=== PATIENT | female | born 1980 | race Caucasian/White ===

== ENCOUNTER 2024-04-02 13:38 | Inpatient (IN) | payer OTHER, SELFPAY ==
--- NOTE | ~2024-04-02 | XR_ITS ---
EXAMINATION: XR chest 2V DATE: 04/03/2024 13:19 INDICATION: Left face weakness. Stroke. TECHNIQUE: Frontal and lateral views of the chest were obtained. COMPARISON: None. FINDINGS: There is no pneumonia, pleural effusion, or pneumothorax. The heart size is normal. There a re bilateral breast implants. IMPRESSION: 1. No acute cardiopulmonary disease. Reviewed, dictated and finalized at location A. TUBE MAKER
--- NOTE | ~2024-04-02 | XR_ITS ---
EXAMINATION: XR cervical spine 4-5V DATE: 04/03/2024 13:19 INDICATION: Decreased sensation of left face, arm, and leg. Breast cancer. TECHNIQUE: 4 views of the cervical spine were obtained. COMPARISON: None. FINDINGS: There is hypolordosis of cervical spine. Vertebral body heights and intervertebral disc hei ghts are normal. At C7-T1, there is mild facet joint osteoarthritis. IMPRESSION: 1. Mild facet joint osteoarthritis at C7-T1. Reviewed, dictated and finalized at location A. Y GUN REPAIRER HELPER
--- NOTE | ~2024-04-02 | CT_ITS ---
CT brain wo con Ordering provider: Darcy Torre APRN History: 43 years Female with . Left sided weakness . Comparison: None. Technique: CT of the head without contrast. Radiation reduction technique utilized.The dose-length pr oduct was 605.33 mGy-cm. FINDINGS: BRAIN PARENCHYMA AND CSF SPACES: No midline shift, mass effect or hemorrhage. The brain parenchyma a nd CSF spaces are otherwise normal. Small hyperdensity seen in the area of the left matty is most like ly artifactual. VISUALIZED PARANASAL SINUSES: Well aerated. MASTOIDS: Well aerated. BONES: The bones appear intact. SOFT TISSUES: Visualized nasopharynx is normal. Superficial soft tissues are normal. IMPRESSION: No acute intracranial findings. Reviewed, dictated and finalized at location A. OELECTRIC OPERATOR
--- NOTE | ~2024-04-02 | MR_ITS ---
MRI of the brain Clinical History: CVA Technique: Axial and sagittal T1-weighted images were acquired. These were followed by axial T2-weigh gabriela, diffusion weighted, gradient, and FLAIR images. Following intravenous administration of 19 cc Mu ltiHance gadolinium, T1-weighted fat-sat imaging was performed in the axial and coronal planes. Findings: No abnormal signal seen in the brain parenchyma. No acute infarct, intracranial hemorrhage, or mass lesion. Ventricles and subarachnoid spaces are unremarkable. Orbits are unremarkable. Paranasal sinuses and m astoid air cells are clear. Major intracranial flow voids are intact. Sagittal midline structures are intact. No abnormal postcontrast enhancement identified. IMPRESSION: Unremarkable exam. Reviewed, dictated and finalized at location M. RY TEAM MEMBER IMPRESSION: Unremarkable exam.
--- NOTE | ~2024-04-02 | CT_ITS ---
EXAMINATION: CTA brain carotid DATE: 04/02/2024 16:32 INDICATION: Left foot drop. TECHNIQUE: Computed tomographic angiography (CTA) of the head was performed with 100 mL Omnipaque-350 intravenous contrast. CTA of the neck was performed with intravenous contrast. Automated exposure co ntrol and iterative reconstruction technique were employed. The dose-length product was 1146.30 mGy-c m. Maximum intensity projection and volume rendered 3D-reconstructions were created by the [employer] st on a separate workstation. COMPARISON: Head CT 04/02/2024 FINDINGS: HEAD CTA: There is no intracranial hemorrhage, acute infarction, or abnormal intracranial mass lesion . The ventricles are normal in size. There is mild mucosal thickening in the paranasal sinuses. The m astoid air cells are normal. The orbits are normal. The vertebral arteries are codominant. There is n o significant stenosis of basilar artery or the posterior cerebral arteries. There is no significant stenosis of the intracranial internal carotid arteries or anterior or middle cerebral arteries. Anter ior communicating artery is normal. There is no aneurysm. The posterior communicating arteries are no rmal. NECK CTA: There are nodules in the thyroid measuring up to 4 mm, likely not clinically significant. T here are no pathologically enlarged lymph nodes. There is no significant stenosis of the vertebral ar teries. There is no significant plaque in the proximal internal carotid arteries. There is 0% stenosi s of the proximal right internal carotid artery relative to normal distal artery lumen diameter (NASC ET criteria). There is 0% stenosis of the proximal left internal carotid artery relative to normal di stal artery lumen diameter. There is mild facet joint osteoarthritis in cervical spine. IMPRESSION: 1. Normal brain. No aneurysm or significant intracranial arterial stenosis. 2. 0% stenosis of the proximal internal carotid arteries relative to normal distal artery lumen diame ters (NASCET criteria). Reviewed, dictated and finalized at location A. LASS FRAMES INSPECTOR IMPRESSION: 1. Normal brain. No aneurysm or significant intracranial arterial stenosis. 2. 0% stenosis of the proximal internal carotid arteries relative to normal dis simone artery lumen diameters (NASCET criteria).
[2024-04-02 13:44] VITALS: BP 120/72; PULSE 75; RESP 16; TEMP 36.6; O2SAT 100
[2024-04-02 14:31] LABS: BEDSIDEPREGUCG Negative (Negative)
[2024-04-02 14:41] LABS: Basophils Percent Auto 0.7 % (0.2-1.2); Eosinophils Absolute Auto 0.2 K/mm3 (0-0.3); Eosinophils Percent Auto 2.8 % (0-4.4); Hematocrit 41.2 % (37.0-47.0); Hemoglobin 13.2 g/dL (12.0-15.0); Immature Granulocyte Absolute 0.01 K/mm3 (0.00-0.031); Immature Granulocyte Percent A 0.2 % (0-0.5); Lymphocytes Absolute Auto 1.52 K/mm3 (0.9-3.2); Mean Corpuscular Volume 87.3 fl (80-100); Mean Platelet Volume 11.1 fl (7.4-10.4); Monocytes Absolute Auto 0.4 K/mm3 (0.1-0.6); Monocytes Percent Auto 6.9 % (2.6-8.5); Neutrophils Absolute Auto 3.9 K/mm3 (1.3-6.7); Neutrophils Percent Auto 64.4 % (45.5-73.1); Platelet Count Result 232 k/mm3 (150-375); Red Blood Count 4.72 M/mm3 (4.2-5.4); Red Cell Distribution Width 13.4 % (11.5-14.5); White Blood Count 6.1 K/mm3 (4.5-10.0)
[2024-04-02 14:43] LABS: Add Urine Microscopic? NO; Appearance Urine Clear (Clear); Bilirubin Urine Negative (Negative); Blood Urine Negative (Negative); Color Urine Yellow (Yellow); Glucose Urine UA Negative (Negative); Ketones Urine Negative (Negative); Leukocyte Esterase Ur Negative LEU/UL (Negative); Nitrate Urine Negative (Negative); Protein Urine Negative (Negative); Specific Grav Ur 1.005 (1.001-1.035); Urobilinogen Urine 0.2 mg/dL (<2.0)
[2024-04-02 14:51] LABS: Alanine Aminotransferase 15 U/L (6-35); Albumin Level 4.4 g/dL (3.5-5.1); Alkaline Phosphatase 69 U/L (38-126); Anion Gap 3 mmol/L (4-12); Aspartate Amino Transferase 26 U/L (14-36); Bilirubin,Total 0.5 mg/dL (0.2-1.3); Blood Urea Nitrogen 17 mg/dL (7-17); Calcium 8.6 mg/dL (8.4-10.2); Carbon Dioxide 27 mmol/L (22-30); Chloride 108 mmol/L (98-107); Estimated CRCL calculation 105 ml/min; Estimated Glomerular Filt Rate > 60; Glucose 95 mg/dL (65-110); Potassium 4.6 mmol/L (3.4-5.0); Sodium 138 mmol/L (137-145)
[2024-04-02 15:04] LABS: INR 0.9; Prothrombin Time 12.8 Seconds (11.1-14.7)
[2024-04-02 15:05] LABS: Partial Thromboplastin Time 20.3 Seconds (22.3-36.8)
--- NOTE | 2024-04-02 16:17 | ED_ITS ---
HPI - General Adult General Chief complaint: Neuro Symptoms/Deficit Stated complaint: mata's palsy Time Seen by Provider: 04/02/24 14:48 History of Present Illness HPI narrative: this is a 43-year-old female sent from the urgent care for rule out stroke. Patient woke up this morning and drooping of her left eyelid. Last known normal yesterday before she went to bed. eventually patient was told by family member to go to urgent care for evaluation edema she was initially diagnosed with Mata's palsy there was some concern because the patient reported decreased sensation on the left side of her face/arm/leg. Patient denies double vision dysarthria dysphagia or loss of coordination. No motor deficits. Patient has a history of breast cancer that has been treated successfully. Related Data Allergies Allergy/AdvReac Type Severity Reaction Status Date / Time No Known Allergies Allergy Verified 04/02/24 14:30 Exam Narrative: APPEARANCE: No apparent distress. Head: atraumatic. EYES: Ptosis of the left eye, extraocular eye movements intact NOSE: Atraumatic NECK: Trachea midline RESPIRATORY: No increased rate of breathing CARDIOVASCULAR: RRR, ABDOMINAL: Non-distended MUSCULOSKELETAl: No obvious deformities NEURO: Alert. ptosis of the left eye, otherwise cranial nerves intact, motor says sensation intact for 4 extremities, decreased sensation left face arm and leg. No ataxia. forehead movement intact bilaterally SKIN:: Warm, dry. Normal color PSYCHIATRIC: Normal affect NIH Stroke Scale/Score (NIHSS) from [email or web address] on 04/02/2024 All calculations should be rechecked by clinician prior to use RESULT SUMMARY: 2 points NIH Stroke Scale INPUTS: 1A: Level of consciousness ?> 0 = Alert; keenly responsive 1B: Ask month and age ?> 0 = Both questi ons right 1C: 'Blink eyes' & 'squeeze hands' ?> 0 = Performs both tasks 2: Horizontal extraocular movements ?> 0 = Normal 3: Visual saravia ?> 0 = No visual loss 4: Facial palsy ?> 1 = Minor paralysis ( flat nasolabial fold, smile asymmetry) 5A: Left arm motor drift ?> 0 = No drift for 10 seconds 5B: Right arm motor drift ?> 0 = No drif t for 10 seconds 6A: Left leg motor drift ?> 0 = No drift for 5 seconds 6B: Right leg motor drift ?> 0 = No drif t for 5 seconds 7: Limb Ataxia ?> 0 = No ataxia 8: Sensation ?> 1 = Mild-moderate loss: less sharp/more dull 9: Language/aphasia ?> 0 = Normal; no ap hasia 10: Dysarthria ?> 0 = Normal 11: Extinction/inattention ?> 0 = No abn ormality Course Vital Signs Vital signs: Vital Signs Temperature 97.9 F 04/02/24 13:44 Pulse Rate 75 04/02/24 13:44 Respiratory Rate 16 04/02/24 13:44 Blood Pressure 120/72 04/02/24 13:44 Pulse Oximetry 100 04/02/24 13:44 Oxygen Delivery Room Air 04/02/24 13:44 Temperature 97.9 F 04/02/24 13:44 Pulse Rate 75 04/02/24 13:44 Respiratory Rate 16 04/02/24 13:44 Blood Pressure 120/72 04/02/24 13:44 Pulse Oximetry 100 04/02/24 13:44 Oxygen Delivery Room Air 04/02/24 13:44 Medical Decision Making MDM Narrative Medical decision making narrative: -Course: 43-year-old female presenting to ED with left facial droop/ptosis and decreased sensation on the left face/arm/leg. CT brain and CTA unremarkable. Laboratory studies within normal limits. patient will be admitted to the hospital for MRI and Neurology evaluation. -DDX includes but is not limited to: Multiple sclerosis, CVA, atypical Mata's palsy, cranial nerve 3 palsy -Co-morbidities complicating care: depression, history of breast cancer -Independent interpretation of studies: labs and imaging reviewed -Discussion of Management/Consultants:Krys, -Interventions:aspirin -Shared decision making / Disposition: admitted Vital Signs Vital Signs: Vital Signs Temperature 97.9 F 04/02/24 13:44 Pulse Rate 75 04/02/24 13:44 Respiratory Rate 16 04/02/24 13:44 Blood Pressure 120/72 04/02/24 13:44 Pulse Oximetry 100 04/02/24 13:44 Oxygen Delivery Room Air 04/02/24 13:44 Temperature 97.9 F 04/02/24 13:44 Pulse Rate 75 04/02/24 13:44 Respiratory Rate 16 04/02/24 13:44 Blood Pressure 120/72 04/02/24 13:44 Pulse Oximetry 100 04/02/24 13:44 Oxygen Delivery Room Air 04/02/24 13:44 Lab Data 04/02/24 14:27 04/02/24 14:27 Labs: Lab Results 04/02/24 04/02/24 Range/Units 14:27 14:29 WBC 6.1 (4.5-10.0) K/mm3 RBC 4.72 (4.2-5.4) M/mm3 Hgb 13.2 (12.0-15.0) g/dL Hct 41.2 (37.0-47.0) % MCV 87.3 (80-100) fl MCH 28.0 (26-34) pg MCHC 32.0 (32-36) g/dl RDW 13.4 (11.5-14.5) % Plt Count 232 (150-375) k/mm3 MPV 11.1 H (7.4-10.4) fl Immature Gran % (Auto) 0.2 (0-0.5) % Neut % (Auto) 64.4 (45.5-73.1) % Lymph % (Auto) 25.0 (18.3-44.2) % [place] % (Auto) 6.9 (2.6-8.5) % Eos % (Auto) 2.8 (0-4.4) % Baso % (Auto) 0.7 (0.2-1.2) % Lymph # (Auto) 1.52 (0.9-3.2) K/mm3 [place] # (Auto) 0.4 (0.1-0.6) K/mm3 Eos # (Auto) 0.2 (0-0.3) K/mm3 Baso # (Auto) 0.0 (0.0-0.1) K/mm3 Abs Immat Gran (auto) 0.01 (0.00-0.031) K/mm3 Absolute Neuts (auto) 3.9 (1.3-6.7) K/mm3 Absolute Nucleated RBC 0.000 (0.0-0.012) K/mm3 Nucleated RBC % 0.0 (0.0-0.2) % PT 12.8 (11.1-14.7) Seconds INR 0.9 APTT 20.3 L (22.3-36.8) Seconds Sodium 138 (137-145) mmol/L Potassium 4.6 (3.4-5.0) mmol/L Chloride 108 H (98-107) mmol/L Carbon Dioxide 27 (22-30) mmol/L Anion Gap 3 L (4-12) mmol/L BUN 17 (7-17) mg/dL Creatinine 0.70 (0.7-1.0) mg/dL Estim Creat Clear Calc 105 ml/min Estimated GFR > 60 (59 - ) Glucose 95 (65-110) mg/dL Calcium 8.6 (8.4-10.2) mg/dL Total Bilirubin 0.5 (0.2-1.3) mg/dL AST 26 (14-36) U/L ALT 15 (6-35) U/L Alkaline Phosphatase 69 (38-126) U/L Total Protein 8.0 (6.3-8.2) g/dL Albumin 4.4 (3.5-5.1) g/dL Urine Color Yellow (Yellow) Urine Appearance Clear (Clear) Urine pH 6.0 (5.0-9.0) Ur Specific [place] 1.005 (1.001-1.035) Urine Protein Negative (Negative) mg/dL Urine Glucose (UA) Negative (Negative) mg/dL Urine Ketones Negative (Negative) mg/dL Ur Blood (Man) Negative (Negative) Urine Nitrate Negative (Negative) Urine Bilirubin Negative (Negative) Urine Urobilinogen 0.2 (<2.0) mg/dL Leukocyte Esterase Rfl Negative (Negative) WOLF/UL POC Urine HCG, Qual Negative (Negative) Discharge Plan Discharge Clinical Impression: Ptosis, Decreased sensation of leg, Decreased sensation of hand and arm Patient Disposition: Still a Patient Condition: Stable Follow-up/Referrals: UNKNOWN,DOCTOR [Primary Care Provider] -
[2024-04-02 18:38] VITALS: BP 110/71; PULSE 60; RESP 16; TEMP 36.6; O2SAT 100
[2024-04-02 19:04] VITALS: BMI 31.0
--- NOTE | 2024-04-02 19:25 | ADMGEN ---
This patient, Bernard Loco, was admitted to Medical Room 245-. Patient/family oriented to hospital policies and general routines including ID bracelet, bed and alarms, visiting hours, pain management, procedures, bathroom and other care routines, personal items, smoking policy, room service/diet, and visiting hours. Information on how to activate the Rapid Response Team has been discussed. Patient/Family are encouraged to report perceived risks to care and to ask questions if they do not understand what they are told or what they should do.
[2024-04-02 20:00] VITALS: BP 101/66; PULSE 60; PULSE 69; RESP 18; TEMP 36.7; O2SAT 100
--- NOTE | 2024-04-02 23:50 | P.HP_ITS ---
H&P: HPI History of Present Illness Date/Time: 04/02/24 23:50 Chief Complaint: decreased sensation on the left side of her face arm and leg Narrative: This is a 43-year-old female with a significant past medical history of BRCA negative breast cancer status post bilateral mastectomy with reconstructive surgery, total hysterectomy, migraine, anxiety, depression who presented who presented to the hospital for complaints decreased sensation on the left side of her face/ arm/ leg. Patient states that she woke up this morning with left eye droopiness that did not get better. She face timed her mom who told her to go to the urgent care. Patient states that she head is Zometa infusion on Sunday for her osteopenia due to her breast cancer. This was the only thing out of the usual other than taking some magnesium last night to try and help with sleep. she reports the decreased sensation on the left side of her body she states it is just a weird feeling and very hard to describe and words. She de nies any vision changes, lightheadedness, dizziness, weakness, nausea, vomiting, diarrhea, abdominal pain, chest pain, shortness a breath. She does report a headache right now.She denies any recent sick contacts.She originally presented to the urgent care who originally diagnosed her with Mata's palsy however after she explained that she had a weird sensation on the left side of her body they instructed her to go to the emergency room for stroke workup. Last known normal was yesterday before she went to bed. Workup in the hospital included a head CT which was negative for any acute intracranial findings. Head/neck CTA showed a normal brain without aneurysm or significant intracranial arterial stenosis. Initial labs were essentially unremarkable. UA was obtained and was negative. Neurology was consulted. Review of Systems Review of Systems: All systems reviewed & are unremarkable except as noted in HPI and below Constitutional: Constitutional: Reports as per HPI and Reports no additional constitutional complaints Eyes: Eyes: Reports as per HPI and Reports no additional eye complaints ENT: Reports system reviewed and no additional complaints, except as nolberto ochoa and Reports as per HPI Cardiovascular: Cardiovascular: Reports as per HPI and Reports no additional cardiovascular complaints Respiratory: Respiratory: Reports as per HPI and Reports no additional respiratory complaints Gastrointestinal: Gastrointestinal: Reports as per HPI and Reports no additional gastrointestinal complaints Genitourinary: Genitourinary: Reports no additional female genitourinary complaints and Reports as per HPI Musculoskeletal: Musculoskeletal: Reports no additional musculoskeletal complaints and Reports as per HPI Integumentary/Breasts: Skin/Breast: Reports system reviewed and no additional complaints, except as docu and Reports as per HPI Neurologic: Reports system reviewed and no additional complaints, except as documented and Reports as per HPI Psychiatric: Psychiatric: Reports no additional psychiatric complaints and Reports as per HPI [facility] Past Medical History Medical History (Updated 04/03/24 @ 00:32 by Krys Corado APRN) Anxiety Breast cancer BRCA negative, estrogen positive Depression Osteopenia Surgical History Surgical History (Updated 04/03/24 @ 00:32 by Krys Corado APRN) H/O bilateral mastectomy H/O total hysterectomy Family History Family History Father Diabetes mellitus Social History Social History Smoking status: Current every day smoker Tobacco type: e-cigarettes/vaping Alcohol intake: current Substance use: never Substance use type: does not use Do You Feel Safe in your Home?: Yes Lack of Transportation: No Lack of Food: Never True Current Housing: I Have Housing Concerned About Future Housing: No Difficulty Paying Gas/Electric Bills: No Difficulty Paying for Meds: No Currently Unemployed: No Education: High School Diploma/GED Difficulty w/ Childcare or Family Care: No Spiritual care concerns: No Meds Home Medications and Allergies Home Medications Medication Instructions Recorded Confirmed Type All Day Calcium 600 mg PO DAILY 04/02/24 04/02/24 History anastrozole 1 mg tablet 1 mg PO DAILY 04/02/24 04/02/24 History biotin 500 mcg capsule 500 mg PO DAILY 04/02/24 04/02/24 History bupropion HCl 150 mg 24 hr tablet, 150 mg PO DAILY 04/02/24 04/02/24 History extended release buspirone 15 mg tablet 15 mg PO DAILY 04/02/24 04/02/24 History cholecalciferol (vitamin D3) 25 1,000 unit PO DAILY 04/02/24 04/02/24 History mcg (1,000 unit) capsule (Vitamin D3) dextroamphetamine-amphetamine 10 10 mg PO DAILY 11/20/24 11/20/24 History mg tablet magnesium 200 mg tablet 400 mg PO DAILY 04/02/24 04/02/24 History rizatriptan 10 mg disintegrating 10 mg PO PRN PRN Migraine Headache 04/02/24 04/02/24 History tablet sour beth extract 1,000 mg 21,000 mg PO DAILY 04/02/24 04/02/24 History capsule (Tart Beth Extract) Allergies Allergy/AdvReac Type Severity Reaction Status Date / Time No Known Allergies Allergy Verified 04/02/24 14:30 Vital Signs Vital Signs - 24 hr 04/02/24 13:44 04/02/24 18:38 04/02/24 20:00 Temperature 97.9 F 97.8 F 98.0 F Pulse Rate 75 60 60 Respiratory Rate 16 16 18 Blood Pressure 120/72 110/71 101/66 Pulse Oximetry 100 100 100 Oxygen Delivery Room Air 04/02/24 20:00 Temperature Pulse Rate 69 Respiratory Rate Blood Pressure Pulse Oximetry Oxygen Delivery Exam Narrative: General: In no acute distress, well nourished Head: atraumatic, no encephalopathy Eyes: left eye droop, no vision chages ENT: moist mucous membranes, nasal passages clear Neck: supple, no JVD, no adenopathy, trachea midline Cardiac: Normal S1 and S2. No murmur, gallops or friction rubs, peripheral pulses intact. Respiratory: Lungs clear to auscultation, no adventitious lung sounds, currently on room air Gastrointestinal: soft, non-distended, non-tender, normoactive bowel sounds. : voiding without difficulty. Extremities: moves all extremities well, no edema Skin: clean, dry, intact. No wounds or lesions. Neuro: Alert and oriented x4, cranial nerves intact, no neuro deficits. left eye droopiness otherwise states showed features normal, reported decreased sensation on the left side of her body Psych: normal mood, normal affect, interactive H&P: Results Labs Labs: Short CBC 04/02/24 Range/Units 14:27 WBC 6.1 (4.5-10.0) K/mm3 Hgb 13.2 (12.0-15.0) g/dL Hct 41.2 (37.0-47.0) % Plt Count 232 (150-375) k/mm3 BMP 04/02/24 14:27 Sodium 138 Potassium 4.6 Chloride 108 H Carbon Dioxide 27 BUN 17 Creatinine 0.70 Glucose 95 Calcium 8.6 Liver Function 04/02/24 Range/Units 14:27 Total Bilirubin 0.5 (0.2-1.3) mg/dL AST 26 (14-36) U/L ALT 15 (6-35) U/L Alkaline Phosphatase 69 (38-126) U/L Albumin 4.4 (3.5-5.1) g/dL Urine 04/02/24 Range/Units 14:27 Urine Color Yellow (Yellow) Urine Appearance Clear (Clear) Urine pH 6.0 (5.0-9.0) Ur Specific [place] 1.005 (1.001-1.035) Urine Protein Negative (Negative) mg/dL Urine Glucose (UA) Negative (Negative) mg/dL Imaging CT scan - head: Radiologist's impression: CT brain wo con Ordering provider: Darcy Torre APRN History: 43 years Female with . Left sided weakness . Comparison: None. Technique: CT of the head without contrast. Radiation reduction technique utilized.The dose-length product was 605.33 mGy-cm. FINDINGS: BRAIN PARENCHYMA AND CSF SPACES: No midline shift, mass effect or hemorrhage. The brain parenchyma and CSF spaces are otherwise normal. Small hyperdensity seen in the area of the left matty is most likely artifactual. VISUALIZED PARANASAL SINUSES: Well aerated. MASTOIDS: Well aerated. BONES: The bones appear intact. SOFT TISSUES: Visualized nasopharynx is normal. Superficial soft tissues are normal. IMPRESSION: No acute intracranial findings. Reviewed, dictated and finalized at location A. M TENENS head/neck CTA: Radiologist's impression: EXAMINATION: CTA brain carotid DATE: 04/02/2024 16:32 INDICATION: Left foot drop. TECHNIQUE: Computed tomographic angiography (CTA) of the head was performed with 100 mL Omnipaque-350 intravenous contrast. CTA of the neck was performed with intravenous contrast. Automated exposure control and iterative reconstruction technique were employed. The dose-length product was 1146.30 mGy-cm. Maximum intensity projection and volume rendered 3D-reconstructions were created by the technologist on a separate workstation. COMPARISON: Head CT 04/02/2024 FINDINGS: HEAD CTA: There is no intracranial hemorrhage, acute infarction, or abnormal intracranial mass lesion. The ventricles are normal in size. There is mild mucosal thickening in the paranasal sinuses. The mastoid air cells are normal. The orbits are normal. The vertebral arteries are codominant. There is no significant stenosis of basilar artery or the posterior cerebral arteries. There is no significant stenosis of the intracranial internal carotid arteries or anterior or middle cerebral arteries. Anterior communicating artery is normal. There is no aneurysm. The posterior communicating arteries are normal. NECK CTA: There are nodules in the thyroid measuring up to 4 mm, likely not clinically significant. There are no pathologically enlarged lymph nodes. There is no significant stenosis of the vertebral arteries. There is no significant plaque in the proximal internal carotid arteries. There is 0% stenosis of the proximal right internal carotid artery relative to normal distal artery lumen diameter (NASCET criteria). There is 0% stenosis of the proximal left internal carotid artery relative to normal distal artery lumen diameter. There is mild facet joint osteoarthritis in cervical spine. IMPRESSION: 1. Normal brain. No aneurysm or significant intracranial arterial stenosis. 2. 0% stenosis of the proximal internal carotid arteries relative to normal distal artery lumen diameters (NASCET criteria). Reviewed, dictated and finalized at location A. M TENENS Assessment and Plan Assessment and plan (1) Ptosis: Code(s): H02.409 - Unspecified ptosis of unspecified eyelid Status: Acute Assessment and Plan: * reports facial drooping, decreased sensation of hand/arm/leg * head CT was negative for any acute intracranial findings * head/neck CTA showed a normal brain with no aneurysm or significant intracranial arterial stenosis * neurology consulted * Plan for MRI of brain and brainstem tomorrow * plan for echocardiogram with bubble study tomorrow * continue cardiac monitoring * neuro checks * recently had Zometa infusion on Kiran for her osteopenia per her oncologist * last known well was his last night before going to bed * consider ApneaLink for sleep apnea if here again tomorrow night (2) Decreased sensation of leg: Code(s): R20.8 - Other disturbances of skin sensation Status: Acute Assessment and Plan: see above plan of care (3) Decreased sensation of hand and arm: Code(s): R20.8 - Other disturbances of skin sensation Status: Acute Assessment and Plan: see above plan of care (4) Depression: Code(s): F32.A - Depression, unspecified Status: Acute Assessment and Plan: * continue Wellbutrin (5) Breast cancer: Code(s): C50.919 - Malignant neoplasm of unspecified site of unspecified female breast Status: Acute Assessment and Plan: * status post bilateral mastectomy with reconstructive surgery and total abdominal hysterectomy * BRCA negative, estrogen positive cancer * recently had Zometa infusion on Sunday for her osteopenia per her Oncology recommendation. This was the 1st time receiving this medication (6) Anxiety: Code(s): F41.9 - Anxiety disorder, unspecified Status: Acute Assessment and Plan: * continue BuSpar Quality VTE Prophylaxis VTE prophylaxis: pharmacologic ordered Stroke Date of last known normal: 04/02/24 Hospitalist [facility] Advance Care Plan I have confirmed that the patient's Advanced Care Plan is present, code status is documented, or surrogate decision maker is listed in patient medical record.: Yes Medication Reconciliation I have utilized all available resources to obtain, update and review the patients current medications (includes all prescriptions, OTC, herbals, cannabis, and nutritional supplements).: Yes
[2024-04-03] VITALS: PULSE 66
--- NOTE | 2024-04-03 | ECHO_ITS ---
Patient Info Name: Bernard Loco Age: 43 years : 1980 Gender: Female Ht: 68 in Wt: 201 lbs BSA: 2.12 m2 HR: 69 bpm BP: 101 / 66 mmHg Heart Rhythm: Sinus Rhythm Technical Quality: Good Exam Date: 04/03/2024 8:56 AM Exam Location: Echo Lab Patient Status: Inpatient Admit Date: 04/02/2024 Staff Ordering Physician: Krys Corado APRN Static Balancer: Jasmin Maria RDCS Attending Provider: Jones Lane MD Referring Physician: Mickie ZAMUDIO; Exam Type: CA echo doppler w bubble study Study Info Indications - rule out stroke Complete two-dimensional, color flow and Doppler transthoracic echocardiogram is performed with agitated saline. Summary 1. Left ventricular chamber dimension is mildly enlarged. 2. Left ventricular wall thickness is normal. 3. Left ventricular systolic function is normal with an ejection fraction by Biplane Method of Discs of 64 %. 4. The left ventricular diastolic function is normal. 5. Right ventricular chamber dimension is normal. 6. Right ventricular systolic function is normal. 7. Patent foramen ovale (PFO) seen with agitated saline. Left Ventricle Left ventricular chamber dimension is mildly enlarged. Left ventricular wall thickness is normal. Left ventricular systolic function is normal with an ejection fraction by Biplane Method of Discs of 64 %. The left ventricular diastolic function is normal. Right Ventricle Right ventricular chamber dimension is normal. Right ventricular systolic function is normal. Left Atria Left atrial chamber dimension is normal. Right Atria Right atrial chamber dimension is normal. Atrial Septum Patent foramen ovale (PFO) seen with agitated saline. Aortic Valve The aortic valve is trileaflet. There is no aortic valve stenosis with a peak velocity of 157 cm/s, mean gradient of 6 mmHg, and aortic valve area of 2.2 cm2. There is no aortic valve regurgitation. No aortic valve vegetation visualized. Mitral Valve The mitral valve has normal leaflets. There is no mitral valve stenosis. No mitral valve vegetation visualized. There is no mitral valve regurgitation. Tricuspid Valve There is trace tricuspid valve regurgitation. No pulmonary hypertension, estimated pulmonary arterial systolic pressure is 23 mmHg. Inferior Vena Cava Normal inferior vena cava with >50% collapse upon inspiration consistent with normal right atrial pressure, 3 mmHg. Aorta The prox ascending aorta size is normal. The aortic root size at the sinus of Valsalva is normal. Left Ventricular Outflow Tract Name Value Normal LVOT 2D LVOT Diameter 1.8 cm LVOT Doppler LVOT Peak Velocity 110 cm/s LVOT Peak Gradient 5 mmHg LVOT Mean Gradient 3 mmHg LVOT VTI 29 cm LVOT VTI/AV VTI Ratio 0.8 LVOT Stroke Volume 76 ml LVOT CO 4.8 l/min LVOT CI 2.3 l/min/m2 Mitral Valve Name Value Normal MV Doppler MV Decel Hitchcock 452 cm/s2 MV PHT 64 ms MV Area (PHT) 3.5 cm2 4.0-5.0 MV Diastolic Function MV E Peak Velocity 99 cm/s MV A Peak Velocity 82 cm/s MV E/A 1.2 MV Decel Time 219 ms MV Annular TDI MV Septal e' Velocity 9.1 cm/s >=8.0 MV E/e' (Septal) 10.9 <=8.0 MV Lateral e' Velocity 12.0 cm/s >=10.0 MV E/e' (Lateral) 8.3 <=8.0 MV e' Average 10.54 MV E/e' (Average) 9.6 Tricuspid Valve Name Value Normal TV Regurgitation Doppler TR Peak Velocity 222 cm/s TR Peak Gradient 20 mmHg Estimated PAP/RSVP RA Pressure 3 mmHg <=5 PA Systolic Pressure 23 mmHg <36 RV Systolic Pressure 23 mmHg <36 TV Annular TDI TV Lateral Nikkie s' Velocity 14.9 cm/s 9.5-18.7 Aortic Valve Name Value Normal AV Doppler AV Peak Velocity 157 cm/s AV Peak Gradient 10 mmHg AV Mean Gradient 6 mmHg AV VTI 35 cm AV Area (Cont Eq VTI) 2.2 cm2 >=3.0 AV Area (Cont Eq Cordell) 1.9 cm2 AV V1/V2 Ratio 0.70 AV Regurgitation 2D LVOT Area 2.6 cm2 Ventricles Name Value Normal LV Dimensions 2D/MM IVS Diastolic Thickness (2D) 0.6 cm 0.6-1.0 LVID Diastole (2D) 5.4 cm 3.8-5.2 LVIW Diastolic Thickness (2D) 0.8 cm 0.6-0.9 LVID Systole (2D) 3.6 cm 2.2-3.5 LVOT Diameter 1.8 cm LV Mass (2D Cubed) 129.16 g 67.00-162.00 LV Mass Index (2D Cubed) 61 g/m2 43-95 Relative Wall Thickness (2D) 0.28 LV Fractional Shortening/Ejection Fraction 2D/MM LV Fractional Shortening (2D) 34 % 27-45 LV EF (2D Teicholz) 62 % 54-74 LV Diastolic Volume (4C MOD) 90 ml LV EF (4C MOD) 61 % LV Diastolic Volume (2C MOD) 123 ml LV EF (2C MOD) 67 % LV Diastolic Volume (BP MOD) 113 ml 46-106 LV Diastolic Volume Index (BP MOD) 53 ml/m2 29-61 LV Systolic Volume (BP MOD) 40 ml 14-42 LV Systolic Volume Index (BP MOD) 19 ml/m2 8-24 LV EF (BP MOD) 64 % 54-74 LV Diastolic Length (4C) 8.0 cm LV Systolic Length (4C) 5.7 cm LV Stroke Volume (4C MOD) 55 ml Atria Name Value Normal LA Dimensions LA Volume (4C A-L) 41 ml LA Volume (BP A-L) 58 ml RA Dimensions RA Area (4C) 12.8 cm2 <=18.0 Report Signatures
[2024-04-03] MEDS: ACETAMINOPHEN 325 MG TABLET 650 MG PO (00:23)
[2024-04-03 04:00] VITALS: PULSE 69
[2024-04-03 06:16] LABS: Basophils Percent Auto 0.6 % (0.2-1.2); Eosinophils Absolute Auto 0.2 K/mm3 (0-0.3); Eosinophils Percent Auto 2.9 % (0-4.4); Hematocrit 39.5 % (37.0-47.0); Hemoglobin 12.5 g/dL (12.0-15.0); Immature Granulocyte Absolute 0.01 K/mm3 (0.00-0.031); Immature Granulocyte Percent A 0.2 % (0-0.5); Lymphocytes Absolute Auto 2.13 K/mm3 (0.9-3.2); Mean Corpuscular HGB Conc 31.6 g/dl (32-36); Mean Corpuscular Hemoglobin 27.8 pg (26-34); Mean Corpuscular Volume 87.8 fl (80-100); Mean Platelet Volume 11.1 fl (7.4-10.4); Monocytes Absolute Auto 0.5 K/mm3 (0.1-0.6); Monocytes Percent Auto 7.3 % (2.6-8.5); Neutrophils Absolute Auto 3.6 K/mm3 (1.3-6.7); Platelet Count Result 228 k/mm3 (150-375); Red Cell Distribution Width 13.4 % (11.5-14.5); White Blood Count 6.5 K/mm3 (4.5-10.0)
[2024-04-03 06:49] LABS: Alanine Aminotransferase 13 U/L (6-35); Albumin Level 3.9 g/dL (3.5-5.1); Alkaline Phosphatase 71 U/L (38-126); Anion Gap 4 mmol/L (4-12); Aspartate Amino Transferase 21 U/L (14-36); Bilirubin,Total 0.5 mg/dL (0.2-1.3); Blood Urea Nitrogen 16 mg/dL (7-17); Calcium 8.5 mg/dL (8.4-10.2); Carbon Dioxide 25 mmol/L (22-30); Chloride 108 mmol/L (98-107); Estimated CRCL calculation 121 ml/min; Estimated Glomerular Filt Rate > 60; Glucose 88 mg/dL (65-110); Potassium 4.3 mmol/L (3.4-5.0); Sodium 137 mmol/L (137-145)
[2024-04-03 06:55] VITALS: BP 92/55; PULSE 67; RESP 18; TEMP 36.5; O2SAT 98
[2024-04-03] MEDS: ONDANSETRON INJ 4 MG/2 ML VIAL IV PUSH (07:30)
[2024-04-03 09:07] VITALS: O2SAT 97
--- NOTE | 2024-04-03 09:27 | P.PNIM_ITS ---
Progress Note: A&P Assessment and Plan (1) Ptosis: Code(s): H02.409 - Unspecified ptosis of unspecified eyelid Status: Acute Assessment and Plan: * reports facial drooping, decreased sensation of hand/arm/leg * head CT was negative for any acute intracranial findings * head/neck CTA showed a normal brain with no aneurysm or significant intracranial arterial stenosis * neurology consulted * Plan for MRI of brain and brainstem tomorrow * plan for echocardiogram with bubble study tomorrow * continue cardiac monitoring * neuro checks * recently had Zometa infusion on Sunday for her osteopenia per her oncologist * last known well was his last night before going to bed * consider ApneaLink for sleep apnea if here again tomorrow night (2) Decreased sensation of leg: Code(s): R20.8 - Other disturbances of skin sensation Status: Acute Assessment and Plan: see above plan of care (3) Decreased sensation of hand and arm: Code(s): R20.8 - Other disturbances of skin sensation Status: Acute Assessment and Plan: see above plan of care (4) Depression: Code(s): F32.A - Depression, unspecified Status: Acute Assessment and Plan: * continue Wellbutrin (5) Breast cancer: Code(s): C50.919 - Malignant neoplasm of unspecified site of unspecified female breast Status: Acute Assessment and Plan: * status post bilateral mastectomy with reconstructive surgery and total abdominal hysterectomy * BRCA negative, estrogen positive cancer * recently had Zometa infusion on Sunday for her osteopenia per her Oncology recommendation. This was the 1st time receiving this medication (6) Anxiety: Code(s): F41.9 - Anxiety disorder, unspecified Status: Acute Assessment and Plan: * continue BuSpar Subjective Date/time seen: 04/03/24 09:27 Interval history: Chief Complaint: decreased sensation on the left side of her face arm and leg Narrative retrieved from H/P: This is a 43-year-old female with a significant past medical history of BRCA negative breast cancer status post bilateral mastectomy with reconstructive surgery, total hysterectomy, migraine, anxiety, depression who presented who presented to the hospital for complaints decreased sensation on the left side of her face/ arm/ leg. Patient states that she woke up this morning with left eye droopiness that did not get better. She face timed her mom who told her to go to the urgent care. Patient states that she head is Zometa infusion on Sunday for her osteopenia due to her breast cancer. This was the only thing out of the usual other than taking some magnesium last night to try and help with sleep. she reports the decreased sensation on the left side of her body she states it is just a weird feeling and very hard to describe and words. She denies any vision changes, lightheadedness, dizziness, weakness, nausea, vomiting, diarrhea, abdominal pain, chest pain, shortness a breath. She does report a headache right now.She denies any recent sick contacts.She originally presented to the urgent care who originally diagnosed her with Mata's palsy however after she explained that she had a weird sensation on the left side of her body they instructed her to go to the emergency room for stroke workup. Last known normal was yesterday before she went to bed. Workup in the hospital included a head CT which was negative for any acute intracranial findings. Head/neck CTA showed a normal brain without aneurysm or significant intracranial arterial stenosis. Initial labs were essentially unremarkable. UA was obtained and was negative. Neurology was consulted. 04/03 pt is seen and examined. MRI of brain and brain, echocardiogram with bubble study today Review of Systems Review of Systems: All systems reviewed & are unremarkable except as noted in HPI and below Constitutional: Constitutional: Reports as per HPI and Reports no additional constitutional complaints Eyes: Eyes: Reports as per HPI and Reports no additional eye complaints ENT: Reports system reviewed and no additional complaints, except as documented and Reports as per HPI Cardiovascular: Cardiovascular: Reports as per HPI and Reports no additional cardiovascular complaints Respiratory: Respiratory: Reports as per HPI and Reports no additional r espiratory complaints Gastrointestinal: Gastrointestinal: Reports as per HPI and Reports no additional gastrointestinal complaints Genitourinary: Genitourinary: Reports no additional female genitourinary complaints and Reports as per HPI Musculoskeletal: Musculoskeletal: Reports no additional musculoskeletal complaints and Reports as per HPI Integumentary/Breasts: Skin/Breast: Reports system reviewed and no additional complaints, except as docu and Reports as per HPI Neurologic: Reports system reviewed and no additional complaints, except as documented and Reports as per HPI Psychiatric: Psychiatric: Reports no additional psychiatric complaints and Reports as per HPI Exam Narrative: General: In no acute distress, well nourished Head: atraumatic, no encephalopathy Eyes: left eye droop, no vision chages ENT: moist mucous membranes, nasal passages clear Neck: supple, no JVD, no adenopathy, trachea midline Cardiac: Normal S1 and S2. No murmur, gallops or friction rubs, peripheral pulses intact. Respiratory: Lungs clear to auscultation, no adventitious lung sounds, currently on room air Gastrointestinal: soft, non-distended, non-tender, normoactive bowel sounds. : voiding without difficulty. Extremities: moves all extremities well, no edema Skin: clean, dry, intact. No wounds or lesions. Neuro: Alert and oriented x4, cranial nerves intact, no neuro deficits. left eye droopiness otherwise states showed features normal, reported decreased sensation on the left side of her body Psych: normal mood, normal affect, interactive Objective Data Vital Signs Vital Signs: Vital Signs - 24 hr 04/02/24 13:44 04/02/24 18:38 04/02/24 20:00 Temperature 97.9 F 97.8 F 98.0 F Pulse Rate 75 60 60 Respiratory Rate 16 16 18 Blood Pressure 120/72 110/71 101/66 Pulse Oximetry 100 100 100 Oxygen Delivery Room Air 04/02/24 20:00 04/03/24 00:00 04/03/24 04:00 Temperature Pulse Rate 69 66 69 Respiratory Rate Blood Pressure Pulse Oximetry Oxygen Delivery 04/03/24 06:55 04/03/24 09:07 Temperature 97.7 F Pulse Rate 67 Respiratory Rate 18 Blood Pressure 92/55 L Pulse Oximetry 98 97 Oxygen Delivery Room Air Meds/Results Medications: Active Medications Generic Name Dose Route Start Last Admin Trade Name Freq PRN Reason Stop Dose Admin Acetaminophen 650 mg 04/02/24 23:54 04/03/24 00:23 Acetaminophen 325 Mg Tablet PO 650 mg Q4H PRN Administration Mild Pain (1-3) or Fever Bupropion HCl 150 mg 04/03/24 09:00 Bupropion Hcl Xl (24 Hr) 150 Mg Tabcr PO DAILY HUMBERTO Buspirone HCl 15 mg 04/03/24 09:00 Buspirone Hcl 5 Mg Tablet PO DAILY HUMBERTO Enoxaparin Sodium 40 mg 04/03/24 09:00 Enoxaparin 40 Mg/0.4 Ml Syringe SUB-Q DAILY HUMBERTO Ondansetron HCl 4 mg 04/02/24 23:54 11/21/24 07:30 Ondansetron Inj 4 Mg/2 Ml Vial IV PUSH 4 mg Q6H PRN Administration Nausea And Vomiting Perflutren Lipid Microsphere 0 ml 04/02/24 23:53 Perflutren Lipid Microspheres 1.5 Ml Vial Diluted To 10 Ml Total Volume IV PUSH 04/05/24 23:54 ONCE PRN adequate visualization Protocol Vitamin D 1,000 units 04/03/24 09:00 Cholecalciferol 1,000 Units Tablet PO DAILY HUMBERTO Radiology Results: ITS Impressions Head CT 04/02/24 15:07 IMPRESSION: No acute intracranial findings. Head/Neck CTA 04/02/24 16:36 IMPRESSION: 1. Normal brain. No aneurysm or significant intracranial arterial stenosis. 2. 0% stenosis of the proximal internal carotid arteries relative to normal distal artery lumen diameters (NASCET criteria). Brain MRI 04/03/24 08:05 IMPRESSION: Unremarkable exam. Labs Labs: Laboratory Results - last 24 hr 04/02/24 04/02/24 04/03/24 14:27 14:29 05:33 WBC 6.1 6.5 RBC 4.72 4.50 Hgb 13.2 12.5 Hct 41.2 39.5 MCV 87.3 87.8 MCH 28.0 27.8 MCHC 32.0 31.6 L RDW 13.4 13.4 Plt Count 232 228 MPV 11.1 H 11.1 H Immature Gran % (Auto) 0.2 0.2 Neut % (Auto) 64.4 56.0 Lymph % (Auto) 25.0 33.0 Dodge % (Auto) 6.9 7.3 Eos % (Auto) 2.8 2.9 Baso % (Auto) 0.7 0.6 Lymph # (Auto) 1.52 2.13 Dodge # (Auto) 0.4 0.5 Eos # (Auto) 0.2 0.2 Baso # (Auto) 0.0 0.0 Abs Immat Gran (auto) 0.01 0.01 Absolute Neuts (auto) 3.9 3.6 Absolute Nucleated RBC 0.000 0.000 Nucleated RBC % 0.0 0.0 PT 12.8 INR 0.9 APTT 20.3 L Sodium 138 137 Potassium 4.6 4.3 Chloride 108 H 108 H Carbon Dioxide 27 25 Anion Gap 3 L 4 BUN 17 16 Creatinine 0.70 0.60 L Estim Creat Clear Calc 105 121 Estimated GFR > 60 > 60 Glucose 95 88 Calcium 8.6 8.5 Total Bilirubin 0.5 0.5 AST 26 21 ALT 15 13 Alkaline Phosphatase 69 71 Total Protein 8.0 7.0 Albumin 4.4 3.9 Urine Color Yellow Urine Appearance Clear Urine pH 6.0 Ur Specific [place] 1.005 Urine Protein Negative Urine Glucose (UA) Negative Urine Ketones Negative Ur Blood (Man) Negative Urine Nitrate Negative Urine Bilirubin Negative Urine Urobilinogen 0.2 Leukocyte Esterase Rfl Negative POC Urine HCG, Qual Negative Quality VTE Prophylaxis VTE prophylaxis: pharmacologic ordered
[2024-04-03] MEDS: buPROPion HCL XL (24 HR) 150 MG TABCR PO (09:42)
[2024-04-03] MEDS: busPIRone HCL 5 MG TABLET 15 MG PO (09:42)
[2024-04-03] MEDS: ENOXAPARIN 40 MG/0.4 ML SYRINGE SUB-Q (09:43)
[2024-04-03] MEDS: CHOLECALCIFEROL 1,000 UNITS TABLET 1000 UNITS PO (09:43)
--- NOTE | 2024-04-03 11:37 | P.CONNEU_ITS ---
Assessment and Plan Assessment and plan (1) Ptosis: Code(s): H02.409 - Unspecified ptosis of unspecified eyelid Status: Acute (2) Breast cancer: Code(s): C50.919 - Malignant neoplasm of unspecified site of unspecified female breast Status: Acute Plan Since the ptosis is partial and persistent the possibility of this being a sympathetic worse is the compression of oculomotor nerve on the left side can be in the differential diagnosis. Of course the ocular myasthenia also comes to differential diagnosis. However the symptom intermittent and myasthenia. I will order is likely receptor antibody and see her in my office in 2 weeks time. I would get an opinion from Neuro-Ophthalmology start to [facility] Dr. Orozco. CT angiogram of the head and neck did not show any evidence for aneurysm or any significant findings. MRI of the brain also did not show any abnormality. I have advised her to let her cancer specialist know about this element since at times there may be some relevance to this development. I shall order chest x-ray and x-ray of cervical spine also Consult date: 04/03/24 HPI: Bernard Loco is a 43 year old female woke up in the morning yesterday with the drooping of the left eye which has not changed since that time. She denies any double vision or any pain in the eye. She does have headaches ever since he came into the hospital. There is a history of migraine but she has 1 attack every few months and these is sporadic. During any of the previous attacks he has not had any drooping of the eyes or any neurologic symptoms. She denies any difficulty swallowing or any weakness or numbness in upper lower limbs. The history of cancer of left breast for which she is being treated at the [facility] in [place]. No history of recent head trauma or febrile and Review of Systems Review of Systems: All systems reviewed & are unremarkable except as noted in HPI and below PMFSH Past Medical History Medical History Anxiety Breast cancer BRCA negative, estrogen positive Depression Osteopenia Surgical History Surgical History H/O bilateral mastectomy H/O total hysterectomy Family History Family History Father Diabetes mellitus Social History Social History Smoking status: Current every day smoker Tobacco type: e-cigarettes/vaping Alcohol intake: current Substance use: never Substance use type: does not use Do You Feel Safe in your Home?: Yes Lack of Transportation: No Lack of Food: Never True Current Housing: I Have Housing Concerned About Future Housing: No Difficulty Paying Gas/Electric Bills: No Difficulty Paying for Meds: No Currently Unemployed: No Education: High School Diploma/GED Difficulty w/ Childcare or Family Care: No Spiritual care concerns: No Meds Home Medications and Allergies Home Medications Medication Instructions Recorded Confirmed Type All Day Calcium 600 mg PO DAILY 04/02/24 04/02/24 History anastrozole 1 mg tablet 1 mg PO DAILY 04/02/24 04/02/24 History biotin 500 mcg capsule 500 mg PO DAILY 04/02/24 04/02/24 History bupropion HCl 150 mg 24 hr tablet, 150 mg PO DAILY 04/02/24 04/02/24 History extended release buspirone 15 mg tablet 15 mg PO DAILY 04/02/24 04/02/24 History cholecalciferol (vitamin D3) 25 1,000 unit PO DAILY 04/02/24 04/02/24 History mcg (1,000 unit) capsule (Vitamin D3) dextroamphetamine-amphetamine 10 10 mg PO DAILY 04/02/24 04/02/24 History mg tablet magnesium 200 mg tablet 400 mg PO DAILY 04/02/24 04/02/24 History rizatriptan 10 mg disintegrating 10 mg PO PRN PRN Migraine Headache 04/02/24 04/02/24 History tablet sour beth extract 1,000 mg 21,000 mg PO DAILY 04/02/24 04/02/24 History capsule (Tart Beth Extract) Allergies Allergy/AdvReac Type Severity Reaction Status Date / Time No Known Allergies Allergy Verified 04/02/24 14:30 Vital Signs Vital Signs - 24 hr 04/02/24 13:44 04/02/24 18:38 04/02/24 20:00 Temperature 97.9 F 97.8 F 98.0 F Pulse Rate 75 60 60 Respiratory Rate 16 16 18 Blood Pressure 120/72 110/71 101/66 Pulse Oximetry 100 100 100 Oxygen Delivery Room Air 04/02/24 20:00 04/03/24 00:00 04/03/24 04:00 Temperature Pulse Rate 69 66 69 Respiratory Rate Blood Pressure Pulse Oximetry Oxygen Delivery 04/03/24 06:55 04/03/24 09:07 04/03/24 09:30 Temperature 97.7 F Pulse Rate 67 Respiratory Rate 18 Blood Pressure 92/55 L Pulse Oximetry 98 97 Oxygen Delivery Room Air Room Air Exam Const: General: cooperative, well developed and alert Orientation/consciousness: patient oriented x3 HENMT: Head: atraumatic Mouth: Yes oropharynx normal Other: partial ptosis of left eye was noted Eyes: Alignment and Position: position normal Pupils: Equal, round and reactive pupils present EOM: EOMs intact bilaterally Other: partial ptosis of the left eye however pupils were equal reacting to light. No asymmetry of the pupillary size was noted. Neck: Neck: supple Resp: Effort & Inspection: normal respiratory effort Skin: General skin exam: normal color Neuro: General: patient oriented x3 Cranial nerves: Yes CN's II-XII intact bilaterally, Yes facial sensation intact/muscles of mastication intact, Yes Equal, round and reactive pupils present, Yes facial symmetry and Yes Midline tongue present Cognition (Neuro): normal cognition Speech: normal speech Motor exam (neuro): 5/5 motor strength present throughout Sensory Exam: normal sensation Coordination: [id number] test normal and Normal rapid alternating movements of the distal upper extremity present (Neuro) Extrem: General: normal to inspection Psych: Mental Status: mental status grossly normal Affect: normal affect Results Labs 04/03/24 05:33 04/03/24 05:33 Labs: Short CBC 04/02/24 04/03/24 Range/Units 14:27 05:33 WBC 6.1 6.5 (4.5-10.0) K/mm3 Hgb 13.2 12.5 (12.0-15.0) g/dL Hct 41.2 39.5 (37.0-47.0) % Plt Count 232 228 (150-375) k/mm3 BMP 04/02/24 04/03/24 14:27 05:33 Sodium 138 137 Potassium 4.6 4.3 Chloride 108 H 108 H Carbon Dioxide 27 25 BUN 17 16 Creatinine 0.70 0.60 L Glucose 95 88 Calcium 8.6 8.5 Liver Function 04/02/24 04/03/24 Range/Units 14:27 05:33 Total Bilirubin 0.5 0.5 (0.2-1.3) mg/dL AST 26 21 (14-36) U/L ALT 15 13 (6-35) U/L Alkaline Phosphatase 69 71 (38-126) U/L Albumin 4.4 3.9 (3.5-5.1) g/dL Urine 04/02/24 Range/Units 14:27 Urine Color Yellow (Yellow) Urine Appearance Clear (Clear) Urine pH 6.0 (5.0-9.0) Ur Specific [place] 1.005 (1.001-1.035) Urine Protein Negative (Negative) mg/dL Urine Glucose (UA) Negative (Negative) mg/dL
[2024-04-03 12:00] VITALS: PULSE 82
[2024-04-03 14:00] VITALS: BP 113/58; PULSE 86; RESP 16; TEMP 36.8; O2SAT 100
--- NOTE | 2024-04-03 14:46 | P.DS_ITS ---
DS: Admitting Diagnosis Discharge Date 04/03 Admitting Diagnosis acial droop DS: Discharge Diagnosis Discharge Diagnosis (1) Ptosis: Code(s): H02.409 - Unspecified ptosis of unspecified eyelid Status: Acute (2) Decreased sensation of leg: Code(s): R20.8 - Other disturbances of skin sensation Status: Acute (3) Decreased sensation of hand and arm: Code(s): R20.8 - Other disturbances of skin sensation Status: Acute (4) Depression: Code(s): F32.A - Depression, unspecified Status: Acute (5) Breast cancer: Code(s): C50.919 - Malignant neoplasm of unspecified site of unspecified female breast Status: Acute (6) Anxiety: Code(s): F41.9 - Anxiety disorder, unspecified Status: Acute DS: Summary Hospital Course Hospital Course: Bernard Loco is a 43 year old female woke up in the morning yesterday with the drooping of the left eye which has not changed since that time. She denies any double vision or any pain in the eye. She does have headaches, history of random headaches as well, these is sporadic. During any of the previous attacks he has not had any drooping of the eyes or any neurologic symptoms. She denies any difficulty swallowing or any weakness or numbness in upper lower limbs. The history of cancer of left breast for which she is being treated at the [facility] in [place]. No history of recent head trauma, fever. Neurology was consulted. Dr Deluca ordered lab and xray and was ok with discharging pt for a f/u with him in 2 weeks and he would refer pt to ophthalmology at [facility]. Status at Discharge Functional status at discharge: independent ambulation Overall status at discharge: patient is progressing back to baseline Time Spent with Patient Time attestation: Total time spent providing and/or coordinating discharge services: Time spent: Greater than 30 minutes Exam Narrative: General: In no acute distress, well nourished Head: atraumatic, no encephalopathy Eyes: left eye droop, no vision chages ENT: moist mucous membranes, nasal passages clear Neck: supple, no JVD, no adenopathy, trachea midline Cardiac: Normal S1 and S2. No murmur, gallops or friction rubs, peripheral pulses intact. Respiratory: Lungs clear to auscultation, no adventitious lung sounds, currently on room air Gastrointestinal: soft, non-distended, non-tender, normoactive bowel sounds. : voiding without difficulty. Extremities: moves all extremities well, no edema Skin: clean, dry, intact. No wounds or lesions. Neuro: Alert and oriented x4, cranial nerves intact, no neuro deficits. left eye droopiness otherwise states showed features normal, reported decreased sensation on the left side of her body Psych: normal mood, normal affect, interactive DS: Data Data Completed and Pending Completed studies during hospitalization: brain mri, cervical spine ct, chest xray Labs on day of discharge: Labs from last 24 hours 04/03/24 04/03/24 04/02/24 05:33 05:30 14:27 WBC 6.5 RBC 4.50 Hgb 12.5 Hct 39.5 MCV 87.8 MCH 27.8 MCHC 31.6 L RDW 13.4 Plt Count 228 MPV 11.1 H Immature Gran % (Auto) 0.2 Neut % (Auto) 56.0 Lymph % (Auto) 33.0 Dubois % (Auto) 7.3 Eos % (Auto) 2.9 Baso % (Auto) 0.6 Lymph # (Auto) 2.13 Dubois # (Auto) 0.5 Eos # (Auto) 0.2 Baso # (Auto) 0.0 Abs Immat Gran (auto) 0.01 Absolute Neuts (auto) 3.6 Absolute Nucleated RBC 0.000 Nucleated RBC % 0.0 PT 12.8 INR 0.9 APTT 20.3 L Sodium 137 138 Potassium 4.3 4.6 Chloride 108 H 108 H Carbon Dioxide 25 27 Anion Gap 4 3 L BUN 16 17 Creatinine 0.60 L 0.70 Estim Creat Clear Calc 121 105 Estimated GFR > 60 > 60 Glucose 88 95 Calcium 8.5 8.6 Total Bilirubin 0.5 0.5 AST 21 26 ALT 13 15 Alkaline Phosphatase 71 69 Total Protein 7.0 8.0 Albumin 3.9 4.4 Urine Color Yellow Urine Appearance Clear Urine pH 6.0 Ur Specific Hamilton 1.005 Urine Protein Negative Urine Glucose (UA) Negative Urine Ketones Negative Ur Blood (Man) Negative Urine Nitrate Negative Urine Bilirubin Negative Urine Urobilinogen 0.2 Leukocyte Esterase Rfl Negative Striated Muscle Ab Pending Striated Muscle Ab Ttr Pending Acetylchol Rcpt Block Ab Pending Acetylchol Rcpt Bind Ab Pending Acetylchol Rcpt Modu Ab Pending Discharge Plan Discharge Attending physician on discharge: Jones Lane Consulting providers: Jd Deluca Discharging Clinician: Shital Stacy Patient Disposition: Home, Self-Care Activity: may shower Diet: as tolerated and heart healthy Discharge Instructions: Please f/u with DR Deluca in 2 weeks. He will provide contact info for you for ophthalmology at [facility] and once he sees you, he will go over the tests that he ordered today. Patient Instructions: Antibiotic Form Stand Alone Forms: General Discharge Information Follow-up/Referrals: Jd Deluca MD [Physician] - 2 Weeks Discharge Medications: Continued All Day Calcium 600 mg PO DAILY anastrozole 1 mg tablet 1 mg PO DAILY dextroamphetamine-amphetamine 10 mg tablet 10 mg PO DAILY rizatriptan 10 mg tablet,disintegrating 10 mg PO PRN PRN (Reason: Migraine Headache) buspirone 15 mg tablet 15 mg PO DAILY biotin 500 mcg Capsule 500 mg PO DAILY cholecalciferol (vitamin D3) [Vitamin D3] 25 mcg (1,000 unit) Capsule 1,000 unit PO DAILY magnesium 200 mg Tablet 400 mg PO DAILY bupropion HCl 150 mg tablet extended release 24 hr 150 mg PO DAILY Tart Beth Extract 1,000 mg Capsule 21,000 mg PO DAILY Date of admission: 04/02/24 18:27 Primary Care Provider: UNKNOWN,DOCTOR Admitting Provider: Jones Lane Attending physician on admission: Jones Lane Condition: Stable Quality VTE Prophylaxis VTE prophylaxis: pharmacologic ordered Hospitalist MIPS Heart Failure (Exclusion) Patient has history of Heart Transplant or Left Ventricular Assistive Device?: No IF YES, STOP HERE Heart Failure (Qualifier) Patient has current or prior documentation of LVEF less than or equal to 40%, or mod/servere depressed LVSF?: No IF NO, STOP HERE
[2024-04-08 21:49] LABS: Anti Striated Muscle Antibody NEGATIVE (NEGATIVE)
== END 2024-04-03 15:20 | disposition home or self-care (01) | DRG 123 ==
LOC: ANHED 17:04 → ANH2MED 19:01
PROVIDERS: Nurse Practitioner Acute Care; Psychiatry & Neurology Neurology; Registered Nurse; Admitting Provider Internal Medicine; Emergency Provider Emergency Medicine; Visit Provider Nurse Practitioner
DX: H02.402 Unspecified ptosis of left eyelid (principal); R20.0 Anesthesia of skin; F32.A Depression, unspecified; F41.9 Anxiety disorder, unspecified; F17.290 Nicotine dependence, other tobacco product, uncomplicated; M85.80 Other specified disorders of bone density and structure, unspecified site; Z85.3 Personal history of malignant neoplasm of breast; Z90.13 Acquired absence of bilateral breasts and nipples; Z90.710 Acquired absence of both cervix and uterus
CPT/HCPCS: 36415; 70450; 70496; 70498; 70553; 71046; 72050; 80053; 81003; 81025; 85025; 85610; 85730; 86255; 93306; 96375; 99285; A9270; A9577; J1650; J2405; Q9967